=== PATIENT | female | born 1995 | race Asian ===

== ENCOUNTER 2018-03-03 18:37 | Emergency (ER) | payer SELFPAY ==
[~2018-03-03] VITALS: Ht 152.4 cm; Wt 86.2 kg
[2018-03-04] MEDS ORDERED: MORPHINE SULFATE 2 MG/ML SYR IV STA (00:43)
[2018-03-04] MEDS ORDERED: METOCLOPRAMIDE HCL 10 MG/2ML VIAL IV ONE (00:45)
[2018-03-04] MEDS ORDERED: PROMETHAZINE 12.5MG/ NACL 0.9% 12.5 MG/50 ML BAG IV ONE (00:45)
[2018-03-04] MEDS ORDERED: SODIUM CHLORIDE 0.9% 1000ML 1,000 ML IV SCH (00:45)
[2018-03-04 00:52] VITALS: BP 142/86
== END 2018-03-03 23:15 | disposition home or self-care (01) ==
LOC: FSED 18:37
DX: R10.11 Right upper quadrant pain (principal); R11.2 Nausea with vomiting, unspecified; I10 Essential (primary) hypertension; B17.9 Acute viral hepatitis, unspecified

== ENCOUNTER 2018-03-04 12:12 | Inpatient (IN) | payer SELFPAY ==
[~2018-03-04] VITALS: Ht 152.4 cm; Wt 86.2 kg
[2018-03-04] MEDS ORDERED: MORPHINE SULFATE 2 MG/ML SYR IV STA (12:49)
[2018-03-04] MEDS ORDERED: PROMETHAZINE 25MG/ NS 50ML (IV) IV ONE (13:00)
[2018-03-04 13:38] LABS: BASOPHILS % 0.4 % (0.0-1.0); EOSINOPHILS # (AUTO) 0.1 (0.0-0.4); EOSINOPHILS % 1.6 % (0.0-6.0); HEMATOCRIT 43.4 % (34.2-44.1); LYMPHOCYTES # (AUTO) 1.3 (1.0-3.2); LYMPHOCYTES % 14.2 % (18.0-39.1); MEAN CORPUSCULAR HEMOGLOBIN 28.2 pg (28-32); MEAN CORPUSCULAR HGB CONC 34.6 g/dL (31-35); MEAN CORPUSCULAR VOLUME 81.6 fL (81-99); MONOCYTES # (AUTO) 0.4 (0.2-0.8); MONOCYTES % 4.3 % (4.4-11.3); NEUTROPHILS % 78.3 % (38.7-80.0); PLATELET COUNT 319 x10e3/uL (140-360); RED BLOOD COUNT 5.32 x10e6/uL (3.6-5.1); RED CELL DISTRIBUTION WIDTH 13.5 % (11.7-14.4)
[2018-03-04 13:44] LABS: COLOR,URINE YELLOW (YELLOW)
[2018-03-04 13:45] LABS: BILIRUBIN,URINE 3+ (NEGATIVE); CLARITY,URINE CLEAR (CLEAR); KETONES,URINE NEGATIVE (NEGATIVE); LEUKOCYTE ESTERASE ,URINE NEGATIVE (NEGATIVE); NITRITE,URINE NEGATIVE (NEGATIVE); PROTEIN,URINE DIPSTICK 3+ (NEGATIVE); URINE UROBILINOGEN 1 mg/dL (0.2 - 1)
[2018-03-04 13:48] LABS: PREGNANCY TEST, URINE NEGATIVE (NEGATIVE)
[2018-03-04 13:56] LABS: EPITHELIAL CELLS,URINE MODERATE /LPF
[2018-03-04 13:57] LABS: BACTERIA,URINE FEW /HPF
[2018-03-04 13:58] LABS: ALANINE AMINOTRANSFERASE 1011 IU/L (0-55); ALKALINE PHOSPHATASE 177 IU/L (40-150); AMYLASE 108 U/L (25-125); ANION GAP 15.6 mmol/L (8-16); BLOOD UREA NITROGEN 12 mg/dL (7-26); BUN/CREATININE RATIO 17 (6-25); CALCIUM 9.8 mg/dL (8.4-10.2); CARBON DIOXIDE 26 mmol/L (22-29); CHLORIDE 104 mmol/L (98-107); CREATININE, SERUM 0.72 mg/dL (0.57-1.11); EST GLOMERULAR FILTRATION RATE > 60 ML/MIN (60-); GLUCOSE 97 mg/dL (74-118); LIPASE 36 U/L (8-78); POTASSIUM 3.6 mmol/L (3.5-5.1); SODIUM 142 mmol/L (136-145)
[2018-03-04] MEDS ORDERED: SODIUM CHLORIDE 0.9% 1000ML 1,000 ML IV SCH (16:00)
[2018-03-04] MEDS ORDERED: ONDANSETRON HCL INJ 2 MG/ML VIAL IV PRN (16:15)
[2018-03-04] MEDS ORDERED: MORPHINE SULFATE 2 MG/ML SYR IV PRN (16:15)
[2018-03-04] MEDS: HYDRALAZINE HCL 20 MG/ML VIAL IV PRN ×2 (16:51→21:05)
[2018-03-04] MEDS: SODIUM CHLORIDE 0.9% 1000ML 1,000 ML IV SCH (18:42)
[2018-03-04 18:49] VITALS: BP 163/108
--- NOTE | 2018-03-04 18:58 | Diagnostic Imaging Report ---
PROCEDURE: MRCP WITHOUT CONTRAST TECHNIQUE: Limited multiplanar multi-sequence imaging of the abdomen was performed without contrast. Heavily T2 weighted MRCP sequences were obtained with MIP 3-D reconstructions. COMPARISON: None. INDICATIONS: Upper abdominal pain radiating to upper back. FINDINGS: LACK OF GADOLINIUM DECREASES SENSITIVITY FOR DETECTION OF INTRA-ABDOMINAL PATHOLOGY. LIVER: Diffuse signal loss on [id number] images compatible with hepatic steatosis. No focal hepatic lesions. BILIARY: Cholecystectomy. No ductal dilatation or filling defect. PANCREAS: No mass or ductal dilatation. SPLEEN: No splenomegaly. ADRENALS: No nodules. KIDNEYS: No hydronephrosis or mass. PERITONEUM / RETROPERITONEUM: No upper abdominal free fluid. LYMPH NODES: No upper abdominal lymphadenopathy. VESSELS: Flow voids are preserved. BONES AND SOFT TISSUES: Unremarkable. IMPRESSION: 1. Cholecystectomy. No biliary ductal dilatation. 2. Hepatic steatosis. Dictated by: Quincy Andino M.D. on 03/04/2018 at 19:02 Electronically approved by: Quincy Andino M.D. on 03/04/2018 at 19:02
[2018-03-04 19:50] VITALS: BP 157/109
[2018-03-04 20:30] VITALS: BP 157/109
[2018-03-05] VITALS (10 sets, daily range): BP systolic 138–181; BP diastolic 75–119
[2018-03-05] MEDS: SODIUM CHLORIDE 0.9% 1000ML 1,000 ML IV SCH ×4 (00:11→16:50)
[2018-03-05] MEDS: ACETAMINOPHEN 325 MG TAB PO PRN ×2 (02:21→19:41)
[2018-03-05] MEDS ORDERED: NORVASC5 MG PO (04:33)
[2018-03-05 06:26] LABS: BASOPHILS # (AUTO) 0.1 (0.0-0.1); BASOPHILS % 0.6 % (0.0-1.0); EOSINOPHILS # (AUTO) 0.2 (0.0-0.4); EOSINOPHILS % 1.5 % (0.0-6.0); HEMATOCRIT 40.8 % (34.2-44.1); HEMOGLOBIN 13.9 g/dL (12.0-16.0); LYMPHOCYTES # (AUTO) 1.9 (1.0-3.2); LYMPHOCYTES % 18.6 % (18.0-39.1); MEAN CORPUSCULAR HGB CONC 34.1 g/dL (31-35); MEAN CORPUSCULAR VOLUME 82.1 fL (81-99); MONOCYTES # (AUTO) 0.6 (0.2-0.8); MONOCYTES % 5.3 % (4.4-11.3); NEUTROPHILS # (AUTO) 7.4 (2.1-6.9); NEUTROPHILS % 71.4 % (38.7-80.0); PLATELET COUNT 292 x10e3/uL (140-360); RED BLOOD COUNT 4.97 x10e6/uL (3.6-5.1); RED CELL DISTRIBUTION WIDTH 13.6 % (11.7-14.4)
[2018-03-05 07:05] LABS: ALANINE AMINOTRANSFERASE 633 IU/L (0-55); ALBUMIN 3.6 g/dL (3.5-5.0); ALKALINE PHOSPHATASE 152 IU/L (40-150); ANION GAP 13.6 mmol/L (8-16); BLOOD UREA NITROGEN 12 mg/dL (7-26); BUN/CREATININE RATIO 18 (6-25); CALCIUM 9.1 mg/dL (8.4-10.2); CARBON DIOXIDE 22 mmol/L (22-29); CHLORIDE 105 mmol/L (98-107); CREATININE, SERUM 0.67 mg/dL (0.57-1.11); EST GLOMERULAR FILTRATION RATE > 60 ML/MIN (60-); GLUCOSE 90 mg/dL (74-118); POTASSIUM 3.6 mmol/L (3.5-5.1); SODIUM 137 mmol/L (136-145)
[2018-03-05 08:17] LABS: LYMPHOCYTES % (MANUAL) 25 % (19-48); METAMYELOCYTES % (MANUAL) 2 % (0-0); MONOCYTES % (MANUAL) 4 % (3.4-9.0); NEUTROPHILS % (MANUAL) 65 % (40-74)
[2018-03-05 08:18] LABS: ANISOCYTOSIS SLIGHT; PLATELET ESTIMATE ADEQUATE; PLATELET MORPHOLOGY COMMENT NORMAL; RBC MORPHOLOGY COMMENT NORMAL
[2018-03-05 13:05] LABS: ALANINE AMINOTRANSFERASE 618 IU/L (0-55); ALBUMIN 3.9 g/dL (3.5-5.0); ALKALINE PHOSPHATASE 162 IU/L (40-150); ANION GAP 12.6 mmol/L (8-16); BLOOD UREA NITROGEN 12 mg/dL (7-26); BUN/CREATININE RATIO 16 (6-25); CALCIUM 9.5 mg/dL (8.4-10.2); CARBON DIOXIDE 25 mmol/L (22-29); CHLORIDE 104 mmol/L (98-107); CREATININE, SERUM 0.73 mg/dL (0.57-1.11); EST GLOMERULAR FILTRATION RATE > 60 ML/MIN (60-); GLUCOSE 107 mg/dL (74-118); POTASSIUM 3.6 mmol/L (3.5-5.1); SODIUM 138 mmol/L (136-145)
[2018-03-05] MEDS: HYDRALAZINE HCL 20 MG/ML VIAL IV PRN (19:41)
[2018-03-06 00:10] VITALS: BP 158/91
[2018-03-06] MEDS: SODIUM CHLORIDE 0.9% 1000ML 1,000 ML IV SCH ×2 (00:11→08:11)
[2018-03-06 04:15] VITALS: BP 139/85
[2018-03-06 06:05] LABS: BASOPHILS # (AUTO) 0.1 (0.0-0.1); BASOPHILS % 0.8 % (0.0-1.0); EOSINOPHILS # (AUTO) 0.3 (0.0-0.4); EOSINOPHILS % 3.7 % (0.0-6.0); HEMATOCRIT 41.9 % (34.2-44.1); HEMOGLOBIN 14.1 g/dL (12.0-16.0); LYMPHOCYTES # (AUTO) 2.3 (1.0-3.2); LYMPHOCYTES % 24.4 % (18.0-39.1); MEAN CORPUSCULAR HGB CONC 33.7 g/dL (31-35); MEAN CORPUSCULAR VOLUME 83.1 fL (81-99); MONOCYTES # (AUTO) 0.6 (0.2-0.8); MONOCYTES % 6.1 % (4.4-11.3); NEUTROPHILS # (AUTO) 5.8 (2.1-6.9); NEUTROPHILS % 62.9 % (38.7-80.0); PLATELET COUNT 287 x10e3/uL (140-360); RED BLOOD COUNT 5.04 x10e6/uL (3.6-5.1); RED CELL DISTRIBUTION WIDTH 13.7 % (11.7-14.4)
[2018-03-06 06:37] LABS: ALANINE AMINOTRANSFERASE 421 IU/L (0-55); ALBUMIN 3.6 g/dL (3.5-5.0); ALKALINE PHOSPHATASE 143 IU/L (40-150); ANION GAP 12.8 mmol/L (8-16); BLOOD UREA NITROGEN 9 mg/dL (7-26); BUN/CREATININE RATIO 13 (6-25); CALCIUM 9.2 mg/dL (8.4-10.2); CARBON DIOXIDE 24 mmol/L (22-29); CHLORIDE 105 mmol/L (98-107); CREATININE, SERUM 0.71 mg/dL (0.57-1.11); EST GLOMERULAR FILTRATION RATE > 60 ML/MIN (60-); GLUCOSE 118 mg/dL (74-118); POTASSIUM 3.8 mmol/L (3.5-5.1); SODIUM 138 mmol/L (136-145)
[2018-03-06 07:30] VITALS: BP 172/90
[2018-03-06 07:50] LABS: BAND NEUTROPHILS % (MANUAL) 1 %; LYMPHOCYTES % (MANUAL) 20 % (19-48); MONOCYTES % (MANUAL) 4 % (3.4-9.0); NEUTROPHILS % (MANUAL) 66 % (40-74)
[2018-03-06 07:51] LABS: PLATELET ESTIMATE ADEQUATE; PLATELET MORPHOLOGY COMMENT NORMAL; RBC MORPHOLOGY COMMENT NORMAL
[2018-03-06 08:01] VITALS: BP 172/90
[2018-03-06 12:00] VITALS: BP 164/98
[2018-03-07] MEDS ORDERED: AMLODIPINE BESYLATE 5 MG TAB PO SCH (09:00)
== END 2018-03-06 13:55 | disposition home or self-care (01) | DRG 392 ==
LOC: ER 12:12 → ERHOLD 16:19 → MED/SURG2 18:37
DX: R10.13 Epigastric pain (principal); R74.8 Abnormal levels of other serum enzymes; I10 Essential (primary) hypertension; E66.9 Obesity, unspecified; Z68.37 Body mass index [BMI] 37.0-37.9, adult; R10.11 Right upper quadrant pain; Z98.890 Other specified postprocedural states
CPT/HCPCS: 36415; 74181; 80053; 81001; 81025; 82150; 82948; 83690; 85025; 99284; J0360; J2270; J2405; J2550; J7030

== ENCOUNTER 2018-06-21 05:38 | Emergency (ER) | payer SELFPAY ==
[~2018-06-21] VITALS: Ht 152.4 cm; Wt 86.2 kg
[~2018-06-21 05:38] MED LIST: NORVASC5 MG PO
--- OUTSIDE RECORDS SUMMARY | 2018-06-30 11:24 | XMS REPORT ---
Author Author [facility] Organization [facility] Address Unknown Phone Unavailable Care Team Providers Care Hand Coremaker Name Role Phone MESFIN CURRY Unavailable Unavailable Payers Payer Name Policy Type Policy Number Effective Date Expiration Date Problems This patient has no known problems. Allergies, Adverse Reactions, Alerts Allergy Name Allergy Type Status Severity Reaction(s) Onset Date Inactive Date Treating Clinician Comments No Known Allergies DA Active U 2018-06-21 00:00:00 No Known Allergies DA Active U 2015-11-17 00:00:00 Medications This patient has no known medications. Results Test Description Test Time Test Comments Text Results Atomic Results Result Comments [facility] WO 2018-03-04 19:02:00 [facility] [address] [place] [address] Patient Name: MARY GREENBERG MR #: [id number] : 1995 Age/Sex: 22/F Req #: [id number] [facility] Physician: MESFIN CURRY MD Ordered by: CORA ZIMMERMAN MD Report #: [id number] Location: MED/SURG2 Room/Bed: [facility] Procedure: [id number] MRI/MRI MRCP WO Exam Date: Exam Time: REPORT STATUS: Signed PROCEDURE: MRCP WITHOUT CONTRAST TECHNIQUE: Limited multiplanar multi-sequence imaging of the abdomen was performed without contrast. Heavily T2 weighted MRCP sequences were obtained with MIP 3-D reconstructions. COMPARISON: None. INDICATIONS: Upper abdominal pain radiating to upper back. FINDINGS: LACK OF GADOLINIUM DECREASES SENSITIVITY FOR DETECTION OF INTRA-ABDOMINAL PATHOLOGY. LIVER: Diffuse signal loss on [id number] images compatible with hepatic steatosis. No focal hepatic lesions. BILIARY: Cholecystectomy. No ductal dilatation or filling defect. PANCREAS: No mass or ductal dilatation. SPLEEN: No splenomegaly. ADRENALS: No nodules. KIDNEYS: No hydronephrosis or mass. PERITONEUM / RETROPERITONEUM: No upper abdominal free fluid. LYMPH NODES: No upper abdominal lymphadenopathy. VESSELS: Flow voids are preserved. BONES AND SOFT TISSUES: Unremarkable. IMPRESSION: 1. Cholecystectomy. No biliary ductal dilatation. 2. Hepatic steatosis. Dictated by: Quincy Garcia M.D. on 03/04/2018 at 19:02 Electronically approved by: Quincy Garcia M.D. on 03/04/2018 at 19:02 Dictated By: QUINCY GARCIA MD 01 Transcribed By: ALICIA on 03/04/181901 COPY TO: CORA ZIMMERMAN MD
== END 2018-06-21 06:24 | disposition left against medical advice (07) ==
LOC: ER 05:38
DX: R10.9 Unspecified abdominal pain (principal)